=== PATIENT | female | born 1965 | race Caucasian/White ===

== ENCOUNTER 2024-05-06 05:46 | Inpatient (IN) | payer BC, SELFPAY ==
[2024-05-06] VITALS (8 sets, daily range): BP systolic 144–179; BP diastolic 75–90; BMI 38.6
[2024-05-06 03:25] LABS: % Basophils 0.5 % (0-2); % Eosinophils 0.6 % (0-6); % Immature Granulocytes 0.2 % (0-0.5); % Lymphocytes 23.3 % (20.5-51.1); % Monocytes 6.8 % (1.7-9.3); % Neutrophils 68.6 % (42.2-75.2); Absolute Eosinophils 0.1 10^3/uL (0-0.7); Absolute Monocytes 0.6 10^3/uL (0.1-0.6); Absolute Neutrophils 5.8 10^3/uL (1.4-6.5); Hematocrit 42.1 % (37.0-47.0); Mean Corp Hgb Conc. 33.3 g/dL (33.0-37.0); Mean Corpuscular Volume 84.2 fL (81.0-99.0); Mean Platelet Volume 9.8 fL (7.4-10.4); Nucleated Red Blood Cells % 0 %; Platelet Count 299 10^3/uL (130-400); Red Cell Dist. Width 13.1 % (11.5-14.5); White Blood Cell Count 8.4 10^3/uL (4.8-10.8)
[2024-05-06] MEDS: ZOFRAN 4 MG IV ×5 (03:26→21:29)
[2024-05-06] MEDS: PROTONIX IV 40 MG IV ×3 (03:26→21:28)
--- NOTE | 2024-05-06 03:28 | ED.GENMED ---
History of Present Illness
General
Chief Complaint: Abdominal Symptoms
Source: patient and previous hospital records (Hospitalization January 2021 for gallstone pancreatitis.)
Exam Limitations: none
Time Seen by Provider: 05/06/24 03:15
Nursing documentation reviewed up to this point in time: agreed with
History of Present Illness
History of Present Illness:
This is a 58-year-old woman with history of hypertension, osteoarthritis who underwent left total knee replacement January 2024. She admits to significant daily NSAID use due to ongoing left knee pain. She complains of several day history of
intermittent indigestion which has been temporized with omeprazole. Indigestion worsened and has been more persistent since 3 PM yesterday, severe tonight and much worse after drinking 2 glasses of wine and thus far unrelieved with multiple doses
of antacids, Pepcid, omeprazole. Epigastric, lower substernal chest pain is worse with deep breath but she denies shortness of breath, no cough, no diaphoresis. She admits to mild nausea but has had no vomiting.
Epigastric abdominal pain radiates to her back.
She does have history of gallstone pancreatitis January 2021 and underwent cholecystectomy at that time. Current pain feels similar.
Her only daily prescribed medication is lisinopril. She does admit to moderate daily NSAID use as well as sporadic [id number] Prilosec and Pepcid use.
Past History
Past History
ED Past Medical History: GERD, HTN and Other (Gallstone pancreatitis January 2021)
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
Social History
Tobacco: Former smoker
Alcohol: Occasional
Drug: None
Personal:
Living: with family
Employment: Employed
Family History
Family History: Other (Noncontributory)
Phy Exam
Physical Exam
Physical Exam:
GENERAL: 58-year-old obese woman appears her stated age, awake and alert, appears in significant distress related to pain. Intermittently wincing and crying out in pain, guarding her epigastrium. is accompanying.
EYE: anicteric
NECK: Supple, nontender, no meningismus, no significant adenopathy.
ENT: oral mucosa is moist, lips are mildly dry. No rhinorrhea.
CARDIAC: Regular rate and rhythm. no murmur. No rub.
LUNGS: Clear breath sounds bilaterally, no acute respiratory distress, no wheezes/rales/rhonchi
ABDOMEN: Rotund, soft, nondistended, moderate tenderness epigastric region with local guarding, no rebound nor rigidity, no cvat. normoactive BS.
NEUROLOGICAL: Alert and oriented x3, no focal neuro deficits.
SKIN: Warm and dry, normal color, skin intact. No rash.
MUSCULOSKELETAL: No C/C/E. peripheral pulses are full and equal b/l. No palpable tenderness.
PSYCH: Moderately anxious related to pain. Cooperative.
Course
Orders/Labs/Results
Orders:
Orders
05/06/24 03:05
Electrocardiogram (*1) Urgent
Reason for Study: Chest Pain
Cardiac Monitoring- Treatment ONCE
EKG- Treatment ONCE
IV Insert/Care/Rem.- Treatment PRN
O2 Therapy [RESP] Urgent
Titrate/Wean O2 to maintain O2 sat greater than (%): 90
Special Instructions: Maintain sats >/=90%
Pulse Ox/spot Check [RESP] Urgent
Quantity: 1
Special Instructions: ON ROOM AIR
05/06/24 03:15
Complete Blood Count/With Diff Urgent
Comprehensive Metabolic Panel Urgent
Lipase Urgent
Troponin I Urgent
05/06/24 03:17
Pantoprazole [Protonix IV] 40 mg .ROUTE .STK-MED ONE
Phenobarb/Hyoscy/Atropine/Scop [] 10 ml .ROUTE .STK-MED ONE
05/06/24 03:18
Mag Hydrox/Al Hydrox/Simeth [Maalox] 30 ml .ROUTE .STK-MED ONE
Viscous Lidocaine 2% [Xylocaine Viscous Cup] 15 ml .ROUTE .STK-MED ONE
05/06/24 03:19
Mag Hydrox/Al Hydrox/Simeth [Maalox] 30 ml Phenobarb/Hyoscy/Atropine/Scop [] 10 ml Viscous Lidocaine 2% [Xylocaine Viscous Cup] 10 ml PO NOW
05/06/24 03:22
Pantoprazole [Protonix IV] 40 mg IV NOW STA
05/06/24 03:23
Ondansetron Injectable [Zofran] 4 mg IV NOW STA
05/06/24 03:27
0.9% Sodium Chloride 1000 ml [Nss] 1,000 ml IV BOLUS
HYDROmorphone [Dilaudid] 1 mg IV NOW STA
05/06/24 04:00
CT Abd/pelvis W Iv Cont Urgent
Comment:
Reason For Exam: severe epigastric pain, elev LFT's, lipase
05/06/24 05:11
Ondansetron Injectable [Zofran] 4 mg IV NOW STA
05/06/24 05:18
HYDROmorphone [Dilaudid] 0.5 mg IV NOW STA
Abnormal Lab Results
05/06/24
03:15
Creatinine 0.5 L mg/dL
(0.6-1.0)
Glucose 148 H mg/dl
(70-99)
AST 626 H* U/L
(14-36)
ALT 549 H* U/L
(0-35)
Lipase > 4000 H* U/L
(23-300)
05/06/24 03:15
05/06/24 03:15
Vital Signs
Initial and Last Documented VS:
Initial Vital Signs
Temp Pulse Resp BP Pulse Ox
97.6 F 108 22 179/88 100
05/06/24 03:06 05/06/24 03:06 05/06/24 03:06 05/06/24 03:06 05/06/24 03:06
Last Documented Vital Signs
Temp Pulse Resp BP Pulse Ox
97.6 F 98 14 159/87 99
05/06/24 03:06 05/06/24 05:15 05/06/24 04:00 05/06/24 05:08 05/06/24 05:15
MDM/Problems Addressed
Differential Diagnosis Includes:
Concern for severe GERD/esophagitis, pancreatitis, common bile duct stone, gastric ulcer, perforated gastric ulcer, ACS, dissection.
Moderately hypertensive, mildly tachycardic, afebrile. Pulse ox is normal.
Will medicate for pain and nausea, initiate IV fluids.
Labs are pending.
EKG shows no evidence of ACS.
Will plan on imaging depending on results.
Chronic conditions affecting care: HTN and Other (History of GERD, prior history of gallstone pancreatitis)
*Radiology
Radiology exam reviewed: radiology read reviewed
*Pulse Oximetry
Patient hypoxic: no
*EKG
Interpreted by ED Provider?: Yes
Comparison EKG: changes noted (Overall similar to previous January 2021 save her heart rate has increased from 82 to now 107)
Rate: tachycardiac
Rhythm: sinus
[place]: normal axis
Interval: normal interval
QRS Pattern: normal QRS
Ischemia: non-specific ST changes
*Director Emergency Interpretation
Rate: tachycardiac
Interpretation: abnormal
Rhythm: sinus
*Critical Care Note
Total Time (30-74mins, 75-104mins- exclusive of procedures): Not Applicable
Update Note
Update Note:
04:50
Labs significant for markedly elevated LFTs as well as elevated lipase greater than 4000. T. bili and alkaline phosphatase normal. Normal CBC.
I suspect acute pancreatitis. With normal bilirubin and alkaline phosphatase, common bile duct stone is less likely but still a consideration.
Other consideration is alcohol related pancreatitis.
Patient does admit to drinking 2 glasses of wine last night, other than this denies daily nor even frequent alcohol consumption.
CT abdomen pelvis pending.
Will admit to hospitalist service.
ED Attending Note
-
Portions of this chart may have been created with voice recognition software.� Occasional wrong word or��sound alike� substitutions may have occurred due to the inherent limitations of voice recognition software.
Discharge Plan
Departure
Patient Disposition: Admit
Date of Disposition: 05/06/24
Time of Disposition: 04:49
Admit to: Med/Surg
Admit to doctor: Yang
Presentation/result/management discussed w/ accepting MD/DO: Hospitalist
Condition: Serious
Discharge Problem:
Acute pancreatitis
Prescriptions:
No Action
ibuprofen 200 MG tablet
200 mg PO Q4HPRN PRN (Reason: mild pain)
fluticasone propionate 1 SPRAY spray,suspension
1 spray intranasal DAILY
ondansetron 4 MG tablet,disintegrating
4 mg PO Q8HPRN PRN (Reason: nausea)
lisinopril 10 MG tablet
10 mg PO DAILY
Referrals:
Connor Faust MD [Family Provider] -
Interventions
Interventions:
*Risk Screen - Suicide Last Done: 05/06/24 03:06
*General Assessment Last Done: 05/06/24 03:06
*Neglect/Abuse Screening Last Done: 05/06/24 03:06
ED- Fall Risk Assessment Last Done: 05/06/24 03:43
JH-Xavcmx-Vcocsxamvo Assessment Last Done: 05/06/24 03:43
Discharge Date and Time
Print Language: CAY[place] ISLANDER
[2024-05-06] MEDS: DILAUDID 1 MG IV (03:32)
[2024-05-06] MEDS: NSS 1000 IV (03:32)
[2024-05-06 03:50] LABS: ALT (SGPT) 549 U/L (0-35); AST (SGOT) 626 U/L (14-36); Albumin 4.5 g/dl (3.5-5.0); Alkaline Phosphatase 121 U/L (38-126); Blood Urea Nitrogen 13 mg/dl (7-17); Calcium 9.7 mg/dl (8.4-10.2); Carbon Dioxide 26 mmol/L (22-30); Chloride 103 mmol/L (98-107); Estimated Creatinine Clearance > 125 ml/min; Glucose 148 mg/dl (70-99); Lipase > 4000 U/L (23-300); Potassium 4.3 mmol/L (3.5-5.1); Sodium 140 mmol/L (135-145); Total Protein 7.4 g/dl (6.3-8.2); eGFR > 60.00
[2024-05-06 03:52] LABS: Troponin I < 0.012 ng/ml
[2024-05-06] MEDS: DILAUDID 0.5 MG IV (05:24)
--- NOTE | 2024-05-06 05:39 | HPS.HSE ---
Family Physician
-
Family Physician: Connor Faust
Chief Complaint
-
Abd Pain
History of Present Illness
Patient is a 58y F with PMH significant for hypertension and obesity who presents to ED complaining of abdominal pain. Patient states that she started with epigastric pain around 3 PM this afternoon. Her symptoms progressed throughout the
evening. She notes pain in the epigastric area which radiates straight through to the back. Positive nausea without emesis. No fevers / chills. She had three, small, formed BMs this evening - which is unusual for her. Patient notes that she did
eat dinner and she had two glasses of wine this evening and her pain continued to get worse. She does not drink alcohol on a regular basis. Typically has 1-2 drinks every several weeks.
Patient states that she has been having increased symptoms of 'heartburn' for the past week or so. She has been taking Prilosec, Pepcid and TUMS at home without improvement in these symptoms.
Patient also notes that she has been taking ibuprofen very regularly since October 2023. She reports taking 6 tabs daily on a consistent basis (2 tabs TID).
She denies any black / bloody stools.
No other current complaints or concerns.
Patient had one episode of similar symptoms several years ago (2020).
She was hospitalized at that time, diagnosed with gallstone pancreatitis and underwent cholecystectomy.
Medical History
Past Medical History
Past Medical History: Reports Other
Additional Past Medical History:
Hypertension
Obesity
Past Surgical History: Reports Other
Additional Past Surgical History:
Cholecystectomy
Bilateral TKA
x 2
Social History
Tobacco: Non-smoker
Alcohol: Occasional
Drug: None
Family History
Family History: Not pertinent
Allergies / Home Medications
Allergies reflects when Allergies were last updated in [facility].
Home Medications with original date entered in [facility]
Allergy/Medication List:
Allergies
Allergy/AdvReac Type Severity Reaction Status Date / Time
levofloxacin [From Levaquin] Allergy family Verified 01/31/21 04:57
reaction-will
not take
Sulfa (Sulfonamide Allergy Rash Verified 01/31/21 04:57
Antibiotics)
seasonal Allergy nasal Uncoded 01/31/21 04:57
congestion
Home Medications
lisinopril 10 mg tablet 10 mg PO DAILY Blood pressure 02/01/21
Review of Systems
-
History Source: Patient
A 12 point ROS was completed and negative except as noted: Yes
Constitutional: Reports Fatigue; Denies Fever or Chills
Respiratory: Denies Cough or Trouble Breathing
Cardiac: Denies Chest Pain or Palpitations
Abdomen/GI: Reports Abdominal Pain and Nausea; Denies Vomiting, Diarrhea, Constipated, Bloody Stools or Black Stools
: Denies Dysuria or Frequency
Neurological: Denies Dizzy or Headache
Psych: Denies Depression or Anxiety
Physical Exam
Vital Signs
Vital Signs
Temp Pulse Resp BP Pulse Ox
97.6 F 98 14 159/87 99
05/06/24 03:06 05/06/24 05:15 05/06/24 04:00 05/06/24 05:08 05/06/24 05:15
Physical Exam
General: Other (58y F in mild distress due to abdominal pain.)
HEENT: Moist mucous membranes and PERRLA
Respiratory: Clear; No Wheezes, Rales or Rhonchi
Cardiac: S1/S2 and Tachycardia; No Murmur
GI: Other (Obese, pos tenderness and voluntary guarding at the epigastrum. No RUQ tenderness / rebound. Pos BS.)
Musculoskeletal: No Clubbing, No Cyanosis and No Edema
Neuro: AO x 3
Laboratory Results
-
05/06/24 03:15
05/06/24 03:15
Laboratory Results
Total Bilirubin 1.0 mg/dl (0.2-1.3) 05/06/24 03:15
AST 626 U/L (14-36) H* 05/06/24 03:15
ALT 549 U/L (0-35) H* 05/06/24 03:15
Alkaline Phosphatase 121 U/L (38-126) 05/06/24 03:15
Troponin I < 0.012 ng/ml 05/06/24 03:15
Lipase > 4000 U/L (23-300) H* 05/06/24 03:15
Impression/Plan
-
A/P: Patient is a 58y F with PMH significant for hypertension and obesity who presents to ED complaining of abdominal pain.
Acute Pancreatitis
- Admit for further evaluation and treatment.
- NPO, IVFs, pain control, etc.
- CT done in the ED this evening shows mild peripancreatic stranding, but no other acute abnormality.
- Some alcohol tonight - but does not drink on any regular basis.
- ? PUD / duodenal ulcer leading to symptoms given several months of regular NSAID use, recent heartburn symptoms, etc.
- GI evaluation for additional recommendations.
- Follow for clinical improvement.
Transaminitis
- Abnormal LFTs in hepatocellular pattern. Normal bili / alk phos.
- ? secondary to tonight's alcohol intake?
- Check serologis. Follow for changes.
- GI eval as noted above.
GERD
- Recent increase in symptoms and regular NSAID use as noted above.
- IV PPI for now.
- Would avoid NSAIDs in the future.
- GI evaluation +/- endoscopic examination.
Benign Hypertension
- BP somewhat elevated due to acute pain.
- Hold lisinopril acutely.
- IV hydralazine as needed for very high BP.
- Efforts at pain control.
Obesity due to excess calories
- Affects all aspects of care.
- Encourage healthy diet and increased exercise with goal of weight loss.
DVT Prophylaxis: SCDs
Code Status: Full
[2024-05-06] MEDS: NSS (PRESERVATIVE FREE) 10 ML IV ×2 (07:37→21:28)
[2024-05-06] MEDS: LR 1000 IV ×3 (07:38→21:29)
--- NOTE | 2024-05-06 08:47 | TRANSFER ---
Patient transferred from ED to [facility] Pt walked from stretcher to bed, AAOx3, VSS, admissin and assessment completed by this RN. Call raphael within reach.
[2024-05-06] MEDS: TORADOL 15 MG IV ×3 (09:33→21:29)
[2024-05-06] MEDS: PHENERGAN 50.25 MG IV (09:54)
--- NOTE | 2024-05-06 12:21 | CON.GI ---
Addendum entered and electronically signed by Rafael Smith DO 05/06/24 15:08:
I saw and examined the patient.
The COAL CRUSHER OPERATOR's note was reviewed and I agree with the note.
Comment: Ms. Gar is a 58 y.o female with past medical history of HTN and gallstone pancreatitis (s/p CCY 2020) who presented with acute epigastric pain. Meets criteria for acute pancreatitis given her symptomatology and elevated lipase > 4000s.
CT imaging with faint stranding along the pancreatic head which may represent early pancreatitis along with with mild CBD dilatation up to 1.0 cm without any overt filling defects. This is possibly from reservoir effect from prior CCY, however given
her elevated LFTs with AST 626, ALT 549, ALP 121, and T Bili 1.0 biliary source should be rule out. Her prior recent alcohol use (three drinks over weekend) would not explain her current elevated LFTs. Otherwise, no other new medications. Currently,
her pain is improving but would benefit from a MRI/MRCP this admission to definitively r/o retained stone and/or sludge as possible recurrent cause of her pancreatitis.
Recommendations:
- Keep NPO pending MRCP
- Trend LFTs with T Bili q daily
- Agree with obtaining triglycerides and IgG4 to exclude other etiologies
- Ordered MRI/MRCP WWO contrast for further evaluation
- Ensure daily bowel regimen for ileus prevention / OIC
- Pain control and IV-antiemetics PRN
- Cessation of EtOH and NSAIDs
- Rest of care as outlined below
GI will continue to follow.
Original Note:
Consultation
-
Date/Time Consultation Requested: 05/06/24 0705
Date/Time Consultation Performed: 05/06/24 1210
Requesting Provider: Dr. Soria
Performing Provider: Dr. Smith/TORIBIO Alatorre
Reason for Consultation: pancreatitis
Medical History
Chief Complaint / HPI
Chief Complaint: epigastric pain
History of Present Illness:
58-year-old female with past medical history of hypertension, gallstones pancreatitis status postcholecystectomy 2020, knee osteoarthritis who presents to the emergency room with acute onset of epigastric pain. Asked to evaluate for pancreatitis.
The patient states that she has had 1 month history of intermittent loose stools. She states that this occurred after her family had norovirus back in March. She states that she has had some issues with fattier foods recently and was advised by
her PCP to go on a lactose-free diet. She states that on Monday evening she went out to dinner and had shrimp and steak. She also had a glass of wine. She states she felt okay. On Monday she had 2 glasses of wine as well as and tinnitus. She
developed acute onset of epigastric discomfort. She states that this was sharp as well as dull pressure. She took 3 Prilosec as well as a couple Pepcid and Tums without any relief. She went to try to go lie down however had worsening symptoms and
presented to the emergency room. She did have associated nausea however did not vomit. She states the pain was constant with a gnawing feeling and feels similar to when she had her gallstone pancreatitis in the past. The patient denies any
fevers, chills, vomiting, melena, hematochezia, dysphagia or odynophagia. No early satiety or unintentional weight loss. No acholic stools or bilirubinuria. She has been using ibuprofen for left knee replacement in January. No changes in
medication. She takes lisinopril. She has had no increase in dose and has been on this for many years. She states that she had 3 glasses of wine over the weekend but other than that it has been at least a month since she had any other alcohol.
She has never had an endoscopy or colonoscopy before. She denies any family history of gastrointestinal malignancy, IBD or pancreatic issues. She does not smoke.
Past Medical History
Past Medical History: HTN and Other (Gallstone pancreatitis (2020), osteoarthritis)
Past Surgical History: Other (Bilateral total knee arthroscopy, C-sections x 2, cholecystectomy)
Social History
Tobacco: Non-Smoker
Alcohol: Occasional
Drug: None
Personal:
Living: With Family
Family History
Family History: Other (No family history of gastrointestinal malignancy, IBD, pancreatitis or family history of pancreatic disease)
Allergies / Home Medications
Allergy/AdvReac Type Severity Reaction Status Date / Time
levofloxacin [From Levaquin] Allergy family Verified 01/31/21 04:57
reaction-will
not take
Sulfa (Sulfonamide Allergy Rash Verified 01/31/21 04:57
Antibiotics)
seasonal Allergy nasal Uncoded 01/31/21 04:57
congestion
�Medication �Instructions �Recorded
lisinopril 10 mg tablet 10 mg PO DAILY Blood pressure 02/01/21
ibuprofen 200 mg tablet (Advil) 400 mg PO DAILYPRN PRN mild pain 05/06/24
Review of Systems
-
All other systems: A 12 pt ROS was Negative except as stated above in HPI
Vital Signs
Temp Pulse Resp BP Pulse Ox
99.1 F 73 20 177/89 95
05/06/24 11:10 05/06/24 11:10 05/06/24 11:10 05/06/24 11:10 05/06/24 11:10
Physical Exam
Exam
General: No Apparent Distress
HEENT: Anicteric
Respiratory: Clear
Cardiac: Regular Rhythm
GI: Soft, Non Distended, Normal Bowel Sounds and Tender (Epigastric/periumbilical tenderness)
Musculoskeletal: No Edema
Neuro: AO x 3
Psych: Calm
Results
WBC 8.4 10^3/uL (4.8-10.8) 05/06/24 03:15
Hgb 14.0 g/dL (12.0-16.0) 05/06/24 03:15
Hct 42.1 % (37.0-47.0) 05/06/24 03:15
MCV 84.2 fL (81.0-99.0) 05/06/24 03:15
Plt Count 299 10^3/uL (130-400) 05/06/24 03:15
Absolute Neuts (auto) 5.8 10^3/uL (1.4-6.5) 05/06/24 03:15
Sodium 140 mmol/L (135-145) 05/06/24 03:15
Potassium 4.3 mmol/L (3.5-5.1) 05/06/24 03:15
Chloride 103 mmol/L (98-107) 05/06/24 03:15
Carbon Dioxide 26 mmol/L (22-30) 05/06/24 03:15
BUN 13 mg/dl (7-17) 05/06/24 03:15
Creatinine 0.5 mg/dL (0.6-1.0) L 05/06/24 03:15
Calcium 9.7 mg/dl (8.4-10.2) 05/06/24 03:15
Total Bilirubin 1.0 mg/dl (0.2-1.3) 05/06/24 03:15
AST 626 U/L (14-36) H* 05/06/24 03:15
ALT 549 U/L (0-35) H* 05/06/24 03:15
Alkaline Phosphatase 121 U/L (38-126) 05/06/24 03:15
Lipase > 4000 U/L (23-300) H* 05/06/24 03:15
Diagnostic Image Results:
CT abdomen and pelvis with IV contrast:
There is questionable faint stranding along the pancreatic head which may represent early pancreatitis. Recommend correlation with lipase.
Hepatic steatosis.
Prior cholecystectomy. There is mild prominence of the common bile duct which measures 1.0 cm, likely reservoir effect in the setting of prior cholecystectomy.
Multiple uterine fibroids with the largest measuring 3.3 cm along the uterine fundus.
Prior GI Procedures:
EGD: Never
Colonoscopy: Never
Assessment / Plan
-
58year-old female with past medical history of hypertension, gallstones pancreatitis status postcholecystectomy 2020, knee osteoarthritis who presents to the emergency room with acute onset of epigastric pain. Asked to evaluate for pancreatitis.
This occurred after having 2 glasses of wine and empanadas. Patient states it felt similar to when she had her prior episode of gallstone pancreatitis in [address] imaging showing prior cholecystectomy with mild prominence
of the CBD which measures 1.0 cm likely reservoir effect in the setting of prior cholecystectomy. Questionable faint stranding along the pancreatic head which may represent early pancreatitis. Hepatic steatosis. Patient still with significant
epigastric/periumbilical tenderness. WBC 8.4, hemoglobin 14.0, hematocrit 42.1, platelets 299, MCV 84.2, MCH 28.0, Sodium 140, potassium 4.3, chloride 103, CO2 26, BUN 13, creatinine 0.5, glucose 148, total bilirubin 1.0, AST 626, ALT 549, alk phos
121, lipase greater than 4000.
Impression:
Pancreatitis
-- Second episode. First episode was presumed to be secondary to gallstone pancreatitis. (2020)
Plan:
-NPO, ice chips allowed
-Incentive spirometer
-Continue IV fluids
-Check triglycerides, IgG4 subclasses, fractionate bilirubin
-Analgesia and antiemetics as needed
-CBC, BMP, LFTs, lipase in a.m.
-May want to consider MRI/ MRCP for further evaluation of bile duct and pancreas.
-Further recommendations to be forthcoming
-Recommend outpatient colonoscopy for screening.
-
-
Thank you for consultation and allowing me to participate in the patient's care. Please call the content designer GI physician during the after hours with any questions or concerns.
--- NOTE | 2024-05-06 12:36 | W.PN.UPDATE ---
Update Note
Progress Note Update
Seen and examined independent of overnight physician.
Continues to states of epigastric and severe abdominal pain. Also states of nausea.
Had glasses of wine prior to coming in. Denies drinking on a daily basis. History of cholecystectomy. Denies trauma.
General: Other (58y F in mild distress due to abdominal pain.), morbidly obese
HEENT: Moist mucous membranes and PERRLA
Respiratory: Clear; No Wheezes, Rales or Rhonchi
Cardiac: S1/S2 and Tachycardia; No Murmur
GI: Other (Obese, pos tenderness and voluntary guarding at the epigastrum. No RUQ tenderness / rebound. Pos BS.)
Musculoskeletal: No Clubbing, No Cyanosis and No Edema
Neuro: AO x 3
A/P: Patient is a 58y F with PMH significant for hypertension and obesity who presents to ED complaining of abdominal pain.
Acute Pancreatitis
- NPO, IVFs, pain control, etc.
- CT done in the ED this evening shows mild peripancreatic stranding, but no other acute abnormality.
- Some alcohol tonight - but does not drink on any regular basis.
- ? PUD / duodenal ulcer leading to symptoms given several months of regular NSAID use, recent heartburn symptoms, etc.
- GI evaluation for additional recommendations.
- Follow for clinical improvement.
- Check lipid panel, A1c and triglycerides. Calcium within normal limits. No trauma. Autoimmune workup. ? Lisinopril causing pancreatitis.
Transaminitis
- Abnormal LFTs in hepatocellular pattern. Normal bili / alk phos.
- ? secondary to tonight's alcohol intake?
- Check serologis. Follow for changes.
- GI eval as noted above. Hepatitis panel pending
GERD
- Recent increase in symptoms and regular NSAID use as noted above.
- IV PPI for now.
- Would avoid NSAIDs in the future.
- GI evaluation +/- endoscopic examination.
Benign Hypertension
- BP somewhat elevated due to acute pain.
- Hold lisinopril acutely.
- IV hydralazine as needed for very high BP.
- Efforts at pain control.
Morbid obesity due to excess calories
- Affects all aspects of care.
- Encourage healthy diet and increased exercise with goal of weight loss.
DVT Prophylaxis: SCDs/Lovenox
Code Status: Full
[2024-05-06 14:01] LABS: Direct Bilirubin 0.6 mg/dl (0.0-0.4); Triglycerides 125 mg/dl (10-149)
--- NOTE | 2024-05-06 17:04 | CM ---
Alert awake oriented patient who lives with her oLs who lives in a 2 story home with 2 steps to enter and 14 to bed bathroom. She is independent in driving and in all activities of daily living.Offered VN she declined.
No adaptive devices
Never had VN/SNF
Pharmacy [facility]
PCP Dr Connor Faust
PLAN Home no needs
[2024-05-06] MEDS: TRANDATE 10 MG IV (17:25)
[2024-05-06 18:57] LABS: Hepatitis B Surface Antigen Negative (Negative)
[2024-05-06 19:14] LABS: Hepatitis B Surface Antibody Negative; Hepatitis C Antibody Negative (Negative)
[2024-05-06 20:41] LABS: Hepatitis A IgM Antibody Negative (Negative)
[2024-05-07] VITALS (7 sets, daily range): BP systolic 136–167; BP diastolic 68–91
[2024-05-07] MEDS: LR 1000 IV ×3 (05:54→20:46)
[2024-05-07 07:12] LABS: Hematocrit 36.8 % (37.0-47.0); Mean Corp Hgb Conc. 32.6 g/dL (33.0-37.0); Mean Corpuscular Hgb 27.9 pg (27.0-31.0); Mean Corpuscular Volume 85.6 fL (81.0-99.0); Mean Platelet Volume 9.8 fL (7.4-10.4); Platelet Count 233 10^3/uL (130-400); Red Cell Dist. Width 13.4 % (11.5-14.5); White Blood Cell Count 7.3 10^3/uL (4.8-10.8)
[2024-05-07 08:00] LABS: ALT (SGPT) 732 U/L (0-35); AST (SGOT) 251 U/L (14-36); Albumin 3.6 g/dl (3.5-5.0); Alkaline Phosphatase 164 U/L (38-126); Blood Urea Nitrogen 10 mg/dl (7-17); Calcium 8.8 mg/dl (8.4-10.2); Carbon Dioxide 28 mmol/L (22-30); Chloride 105 mmol/L (98-107); Direct Bilirubin 0.3 mg/dl (0.0-0.4); Estimated Creatinine Clearance > 125 ml/min; Glucose 94 mg/dl (70-99); HDL Cholesterol 82 mg/dl; LDL Cholesterol, Calculated 89 mg/dl; Sodium 142 mmol/L (135-145); Total Bilirubin 0.7 mg/dl (0.2-1.3); Total Cholesterol 188 mg/dl (50-199); Total Protein 6.1 g/dl (6.3-8.2); Triglyceride 86 mg/dl (10-149); Very Low Density Lipoprotein 17 mg/dl (0-30); eGFR > 60.00
[2024-05-07] MEDS: NSS (PRESERVATIVE FREE) 10 ML IV ×2 (08:01→20:36)
[2024-05-07] MEDS: PROTONIX IV 40 MG IV ×2 (08:03→20:36)
[2024-05-07] MEDS: TORADOL 15 MG IV ×2 (08:18→17:48)
[2024-05-07] MEDS: ZOFRAN 4 MG IV ×2 (08:19→17:48)
[2024-05-07 08:37] LABS: Potassium 3.7 mmol/L (3.5-5.1)
--- NOTE | 2024-05-07 08:48 | W.PN.GI.CBS2 ---
Today's Communication / Plan
-
Await MRI/MRCP WWO contrast given elevated LFTs and previous biliary ductal dilatation seen on prior imaging. See rest of care as outlined below.
Assessment / Plan
-
58year-old female with past medical history of hypertension, gallstones pancreatitis status postcholecystectomy 2020, knee osteoarthritis who presents to the emergency room with acute onset of epigastric pain. Asked to evaluate for pancreatitis.
This occurred after having 2 glasses of wine and empanadas. Patient states it felt similar to when she had her prior episode of gallstone pancreatitis in [address] imaging showing prior cholecystectomy with mild prominence
of the CBD which measures 1.0 cm likely reservoir effect in the setting of prior cholecystectomy. Questionable faint stranding along the pancreatic head which may represent early pancreatitis. Hepatic steatosis. Patient still with significant
epigastric/periumbilical tenderness. WBC 8.4, hemoglobin 14.0, hematocrit 42.1, platelets 299, MCV 84.2, MCH 28.0, Sodium 140, potassium 4.3, chloride 103, CO2 26, BUN 13, creatinine 0.5, glucose 148, total bilirubin 1.0, AST 626, ALT 549, alk phos
121, lipase greater than 4000.
#Acute, Recurrent Pancreatitis
-- Second episode. First episode was presumed to be secondary to gallstone pancreatitis. (2020)
#Elevated LFTs
#Biliary Ductal Dilation
Recommendations:
- NPO pending MRI/MRCP
- Continue IVF 24-48 hrs for volume expansion
- Trend serial LFTs q daily, fractionated T Bili and D Bili q daily (now normal)
- Acute hepatitis panel (-)
- Await MRI/MRCP WWO contrast later today to r/o retained stone and/or sludge given previous dilatation and elevated transaminases
- Hypertriglyceridemia r/o (nml TGs 86), pending IgG4 for AI w/u
- Start Miralax and senna as a bowel regimen for ileus prevention / prevention of opioid-induced constipation
- Pain control and IV anti-emetics PRN
- Rest of care per primary team
Discussed with primary internal medicine team. GI will continue to follow while inpatient.
Subjective
Subjective
Date of Service: May 07, 2024
- No acute events overnight
Feeling well and admits complete resolution of previous abdominal pain/discomfort. No nausea or vomiting. NPO pending MRI/MRCP. No other fevers or chills.
Objective
Data Reviewed
Laboratory Data:
Laboratory Results
05/07/24 06:37
05/07/24 06:37
Laboratory Results
Total Bilirubin 0.7 mg/dl (0.2-1.3) 05/07/24 06:37
AST 251 U/L (14-36) H 05/07/24 06:37
ALT 732 U/L (0-35) H* 05/07/24 06:37
Alkaline Phosphatase 164 U/L (38-126) H 05/07/24 06:37
Lipase > 4000 U/L (23-300) H* 05/06/24 03:15
Vital Signs and I&O:
Vital Signs
Temp Pulse Resp BP Pulse Ox
97.8 F 74 18 155/84 97
05/07/24 07:13 05/07/24 07:13 05/07/24 07:13 05/07/24 07:13 05/07/24 07:13
Physical Exam
Physical Exam
HEENT: Anicteric and Moist mucous membranes
Cardiology: Normal Sinus Rhythm
Pulmonary: Other (Normal WOB on room air)
GI: Soft, Non Distended and Non Tender
Extremities: No Edema
Neuro: Non Focal
[2024-05-07 09:36] LABS: Lipase > 4000 U/L (23-300)
[2024-05-07] MEDS: ATIVAN 0.5 MG IV (09:37)
[2024-05-07] MEDS: NSS (PRESERVATIVE FREE) 0.25 ML IV (09:38)
--- NOTE | 2024-05-07 10:46 | CM ---
Reviewed the chart notes. Per notes, await MRI/MRCP WWO contrast for elevated LFTs. CM continues to be available to patient/family and is monitoring medical plan for needs at discharge.
Plan: Discharge to home when medically stable. No needs anticipated.
--- NOTE | 2024-05-07 11:36 | W.PN.HOSP.TC ---
Today's Communication/Plan
-
MRI pending
Reduce IVF rate
IV bp meds
PPI
GI recs
Assessment / Plan
Assessment / Plan
General: morbidly obese, less distressful,
HEENT: Moist mucous membranes and PERRLA
Respiratory: Clear; No Wheezes, Rales or Rhonchi
Cardiac: S1/S2 and Tachycardia; No Murmur
GI: No RUQ tenderness / rebound. Pos BS. Obese,
Musculoskeletal: No Clubbing, No Cyanosis and No Edema
Neuro: AO x 3
A/P: Patient is a 58y F with PMH significant for hypertension and obesity who presents to ED complaining of abdominal pain.
Acute Pancreatitis
- NPO, IVFs, pain control, etc.
- CT done in the ED this evening shows mild peripancreatic stranding, but no other acute abnormality.
- Some alcohol tonight - but does not drink on any regular basis.
- ? PUD / duodenal ulcer leading to symptoms given several months of regular NSAID use, recent heartburn symptoms, etc.
- GI evaluation for additional recommendations.
- Follow for clinical improvement. MRI abdomen completed. results pending
- TG wnl. Calcium within normal limits. No trauma. Autoimmune workup. ?Lisinopril causing pancreatitis.
Transaminitis
- Abnormal LFTs in hepatocellular pattern. Normal bili / alk phos.
- hep serologies neg
- Follow for changes.
- GI eval as noted above. H
GERD
- Recent increase in symptoms and regular NSAID use as noted above.
- IV PPI for now.
- Would avoid NSAIDs in the future.
- GI evaluation +/- endoscopic examination.
Benign Hypertension
- BP somewhat elevated due to acute pain.
- Switch lisinopril to CCB. pt agreed.
- IV meds as needed f
- Efforts at pain control.
Morbid obesity due to excess calories
- Affects all aspects of care.
- Encourage healthy diet and increased exercise with goal of weight loss.
DVT Prophylaxis: SCDs/Lovenox
Code Status: Full
Anticipated Discharge: > 48 hours
Subjective/Interval History
-
Date of Service: May 07, 2024
states of improvement in abd pain
states she was taking increasing amount of tylenol and advil at home
Objective Data
-
Labs:
Laboratory Results
05/07/24
06:37
WBC 7.3
Hgb 12.0
Hct 36.8 L
Plt Count 233 D
Sodium 142
Potassium 3.7
Chloride 105
Carbon Dioxide 28
BUN 10
Creatinine 0.5 L
Glucose 94
Calcium 8.8
Total Bilirubin 0.7
AST 251 H
ALT 732 H*
Alkaline Phosphatase 164 H
Vital Signs:
Vital Signs
Temp Pulse Resp BP Pulse Ox
97.8 F 74 18 155/84 97
05/07/24 07:13 05/07/24 07:13 05/07/24 07:13 05/07/24 07:13 05/07/24 07:13
[2024-05-07] MEDS: PROCARDIA XL (EXTENDED RELEASE) 30 MG PO (12:53)
[2024-05-07 14:33] LABS: Glycohemoglobin (HgbA1c) 5.7 % (4.0-5.6)
[2024-05-07] MEDS: TYLENOL 650 MG PO ×2 (15:24→21:28)
[2024-05-08 02:25] VITALS: BP 129/62
[2024-05-08] MEDS: TYLENOL 650 MG PO ×2 (04:00→12:06)
[2024-05-08] MEDS: LR 1000 IV (06:23)
[2024-05-08 07:30] VITALS: BP 137/74
[2024-05-08] MEDS: NSS (PRESERVATIVE FREE) 10 ML IV (07:32)
[2024-05-08] MEDS: PROTONIX IV 40 MG IV (07:32)
[2024-05-08] MEDS: PROCARDIA XL (EXTENDED RELEASE) PO (07:33)
[2024-05-08 09:51] LABS: ALT (SGPT) 469 U/L (0-35); AST (SGOT) 73 U/L (14-36); Albumin 3.6 g/dl (3.5-5.0); Alkaline Phosphatase 146 U/L (38-126); Blood Urea Nitrogen 6 mg/dl (7-17); Calcium 8.9 mg/dl (8.4-10.2); Carbon Dioxide 28 mmol/L (22-30); Chloride 103 mmol/L (98-107); Estimated Creatinine Clearance > 125 ml/min; Glucose 102 mg/dl (70-99); Lipase 820 U/L (23-300); Potassium 3.7 mmol/L (3.5-5.1); Sodium 139 mmol/L (135-145); Total Bilirubin 0.3 mg/dl (0.2-1.3); Total Protein 6.3 g/dl (6.3-8.2); eGFR > 60.00
[2024-05-08 11:00] VITALS: BP 141/78
--- NOTE | 2024-05-08 11:50 | W.PN.HOSP.TC ---
Today's Communication/Plan
-
low fat diet
op gi f/u
Assessment / Plan
Assessment / Plan
General: morbidly obese, less distressful,
HEENT: Moist mucous membranes and PERRLA
Respiratory: Clear; No Wheezes, Rales or Rhonchi
Cardiac: S1/S2 and Tachycardia; No Murmur
GI: No RUQ tenderness / rebound. Pos BS. Obese,
Musculoskeletal: No Clubbing, No Cyanosis and No Edema
Neuro: AO x 3
A/P: Patient is a 58y F with PMH significant for hypertension and obesity who presents to ED complaining of abdominal pain.
Acute Pancreatitis
- CT done in the ED this evening shows mild peripancreatic stranding, but no other acute abnormality.
- Some alcohol tonight - but does not drink on any regular basis.
- ? PUD / duodenal ulcer leading to symptoms given several months of regular NSAID use, recent heartburn symptoms, etc.
- GI evaluation for additional recommendations.
- Follow for clinical improvement. MRI abdomen noted.
- Tolerating lOW FAt diet.
- TG wnl. Calcium within normal limits. No trauma. Autoimmune workup. d/w with Dr. Smith-most likely etiology is alcohol induced pancreatitis. Also per GI-she should still have a repeat MRI/MRCP in 6-8 weeks to ensure resolution of
pancreatitis as a structural evaluation and r/o pancreatic cystic lesion. Pt verbalized understanding for f/u with GI
Transaminitis
- Abnormal LFTs in hepatocellular pattern. Normal bili / alk phos.
- hep serologies neg
- Follow for changes.
- GI eval as noted above. H
GERD
- Recent increase in symptoms and regular NSAID use as noted above.
- PPI for now.
- Would avoid NSAIDs in the future.
- GI evaluation +/- endoscopic examination.
Benign Hypertension
- BP somewhat elevated due to acute pain.
- Pt stated of severe flushing with nifedipine. Pt wants to be restarted on lisinopril. Understands to stop if wtih severe abd pain. Been on the meds for years.
- IV meds as needed f
- Efforts at pain control.
Morbid obesity due to excess calories
- Affects all aspects of care.
- Encourage healthy diet and increased exercise with goal of weight loss.
DVT Prophylaxis: SCDs/Lovenox
Code Status: Full
More than 30 minutes spent in discharge including
Final examination of the patient
Summarizing hospital stay
Instructions for continuing care to all relevant caregivers
Preparation of discharge records, prescriptions, and referral forms
Total time spent (in minutes): 52
Anticipated Discharge: Today
Subjective/Interval History
-
Date of Service: May 08, 2024
tolerating diet
mild abd discomfort but no severe pain
Objective Data
-
Labs:
Laboratory Results
05/08/24
09:01
Sodium 139
Potassium 3.7
Chloride 103
Carbon Dioxide 28
BUN 6 L
Creatinine 0.5 L
Glucose 102 H
Calcium 8.9
Total Bilirubin 0.3
AST 73 H
ALT 469 H
Alkaline Phosphatase 146 H
Vital Signs:
Vital Signs
Temp Pulse Resp BP Pulse Ox
98.6 F 78 16 141/78 97
05/08/24 11:00 05/08/24 11:00 05/08/24 11:00 05/08/24 11:00 05/08/24 11:00
--- NOTE | 2024-05-08 11:56 | W.DCSUMMARY ---
Discharge Summary
Discharge Data
Date of Admission: 05/06/24
Date of Discharge: 05/08/24
-
Pending Results: No
Hospital Course
Patient is a 58y F with PMH significant for hypertension and obesity who presents to ED complaining of abdominal pain. Patient was found to have a severely elevated transaminitis and lipase. Patient was found to acute pancreatitis. CT done in
the ED this evening shows mild peripancreatic stranding, but no other acute abnormality. Patient was eval by gastroenterology. Patient was diet aggressive IV fluid resuscitation. Patient was also taking increasing amount of ibuprofen at home.
Patient was started on PPI. Patient underwent MRI of the abdomen. MRI showed Acute INTERSTITIAL EDEMATOUS PANCREATITIS. No MRI evidence for pancreatic necrosis or acute peripancreatic collection. Mild biliary dilatation without evidence for
choledocholithiasis. Previous cholecystectomy. SEVERE DIFFUSE HEPATIC STEATOSIS. Mild hepatosplenomegaly. Mild cardiomegaly. Patient did have alcohol intake prior to arrival to the hospital. Patient triglycerides are within normal limits. Calcium
was within normal limits. No trauma. Patient etiology of pancreatitis likely secondary to alcohol induced was taking biliary sludge. Patient diet was advanced to liquid diet. Patient was tolerating liquid diet and was advanced to low-fat diet.
Patient was tolerating low-fat diet. Initially there was thought process that pancreatitis could be lisinopril induced however lower likelihood and was restarted. Patient LFTs improved. Patient was tolerating diet. Patient already has an
outpatient GI appointment where MRI versus EUS was recommended as outpatient. Patient was also counseled on low-fat diet and weight loss. Patient verbalized understanding.
Discharge Plan
-
Patient Disposition: Home (Routine Discharge)
Discharge Diagnosis/Procedures: Pancreatitis likely secondary to alcohol intake
Condition: Fair
Diet: Low Fat
Blood Work: Liver function test (2 weeks after DC), lab slip given to patient by GI.
Others Tests: Repeat MRI/MRCP in 6-8 weeks with coat feller to ensure resolution of pancreatitis as a structural evaluation and rule out pancreatic cystic lesion
Referrals:
Connor Faust MD [Family Provider] - in less than 1 week
Rafael Smith DO [Active] - 06/24/24 11:30 am (Please have labs (Liver function tests performed 2 weeks after discharge))
Prescriptions:
New
pantoprazole [Protonix] 40 mg tablet,delayed release (DR/EC)
40 mg PO DAILY Qty: 30 0RF
Continued
lisinopril 10 MG tablet
10 mg PO DAILY
Discontinued
ibuprofen [Advil] 200 mg Tablet
400 mg PO DAILYPRN PRN (Reason: mild pain)
Discharge Orders:
Discharge Patient (As Directed); Ordered 05/08/24
Ordered By: Bogdan Claudio
Discharge Date and Time
Print Language: CITIZEN OF [place]
--- NOTE | 2024-05-08 12:14 | W.PN.GI.CBS2 ---
Today's Communication / Plan
-
Continuing to improve in regards to her pancreatitis. LFTs down-trending and suspect secondary to sludge/debris given her markedly elevated LFTs. Would benefit from EUS as an outpatient. See rest of care as outlined below. GI team will sign-off,
please re-engage if any questions or concerns.
Assessment / Plan
-
58year-old female with past medical history of hypertension, gallstones pancreatitis status postcholecystectomy 2020, knee osteoarthritis who presents to the emergency room with acute onset of epigastric pain. Asked to evaluate for pancreatitis.
This occurred after having 2 glasses of wine and empanadas. Patient states it felt similar to when she had her prior episode of gallstone pancreatitis in [address] imaging showing prior cholecystectomy with mild prominence
of the CBD which measures 1.0 cm likely reservoir effect in the setting of prior cholecystectomy. Questionable faint stranding along the pancreatic head which may represent early pancreatitis. Hepatic steatosis. Patient still with significant
epigastric/periumbilical tenderness. WBC 8.4, hemoglobin 14.0, hematocrit 42.1, platelets 299, MCV 84.2, MCH 28.0, Sodium 140, potassium 4.3, chloride 103, CO2 26, BUN 13, creatinine 0.5, glucose 148, total bilirubin 1.0, AST 626, ALT 549, alk phos
121, lipase greater than 4000.
#Acute, Recurrent Pancreatitis
-- Second episode. First episode was presumed to be secondary to gallstone pancreatitis. (2020)
#Elevated LFTs
#Biliary Ductal Dilation
MRI/MRCP 05/07/24: Acute interstitial edematous pancreatitis, mild biliary ductal dilatation without any evidence of choledocholithiasis, prior CCY, and severe diffuse hepatic steatosis ; repeat LFTs improving
Suspect patient may have passed sludge/debris given her previous ductal dilatation (although possibly reservoir effect from prior CCY) and her significantly elevated LFTs on admission. Doubt alcohol as the culprit given that she only drank three
drinks over the weekend (prior to presentation) and again would not account fo her elevated LFTs. Fortunately, she is improving from a pancreatitis and would benefit from outpatient follow-up.
Recommendations:
- Low-fat diet as tolerated
- Trend serial LFTs q daily, fractionated T Bili and D Bili q daily- now improving
- Acute hepatitis panel (-)
- Defer further serologic w/u at this time, suspect she may have mild elevations of her transaminases secondary to MASLD/MASH, but would benefit from outpatient eval
- Hypertriglyceridemia r/o (nml TGs 86), pending IgG4 for AI w/u
- Would benefit from an eventual EUS in 8-12 weeks given her suspected biliary pancreatitis to r/o sludge within her CBD along with structural evaluation of her pancreas. Again, can be arranged as outpatient
- Continue bowel regimen
- Pain control and IV anti-emetics PRN
- Rest of care per primary team
Discussed with primary internal medicine team this afternoon. GI follow-up arranged prior to discharge.
GI team will sign-off, please recontact with any questions or concerns.
Subjective
Subjective
Date of Service: May 08, 2024
- MRI/MRCP 05/07/24: Acute interstitial edematous pancreatitis, mild biliary ductal dilatation without any evidence of choledocholithiasis, prior CCY, and severe diffuse hepatic steatosis
- Repeat LFTs improving
- Otherwise, no acute events overnight
Feeling well this morning, continues to deny any abdominal pain or discomfort. No nausea or vomiting. Having bowel function with reported BM yesterday evening and passing flatus. Discussed results of recent MRI/MRCP.
Objective
Data Reviewed
Laboratory Data:
Laboratory Results
05/07/24 06:37
05/08/24 09:01
Laboratory Results
Total Bilirubin 0.3 mg/dl (0.2-1.3) 05/08/24 09:01
AST 73 U/L (14-36) H 05/08/24 09:01
ALT 469 U/L (0-35) H 05/08/24 09:01
Alkaline Phosphatase 146 U/L (38-126) H 05/08/24 09:01
Lipase 820 U/L (23-300) H 05/08/24 09:01
Vital Signs and I&O:
Vital Signs
Temp Pulse Resp BP Pulse Ox
98.6 F 78 16 141/78 97
05/08/24 11:00 05/08/24 11:00 05/08/24 11:00 05/08/24 11:00 05/08/24 11:00
Physical Exam
Physical Exam
HEENT: Anicteric and Moist mucous membranes
Cardiology: Normal Sinus Rhythm
Pulmonary: Clear
GI: Soft, Non Distended and Non Tender
Extremities: No Edema
Neuro: Non Focal
[2024-05-08 15:16] VITALS: BP 152/82
[2024-05-09 05:04] LABS: IgG Subclass 4 117 mg/dL (1-123)
== END 2024-05-08 18:38 | disposition home or self-care (01) | DRG 440 ==
LOC: 3 WEST ACU 05:46
PROVIDERS: Nurse Practitioner; ADMITTING PHYSICIAN Hospitalist; ATTENDING PHYSICIAN Hospitalist; CONSULT PHYSICIAN Student in an Organized Health Care Education/Training Program; EMERGENCY PHYSICIAN Emergency Medicine; FAMILY PHYSICIAN Internal Medicine
DX: K85.20 Alcohol induced acute pancreatitis without necrosis or infection (principal); I10 Essential (primary) hypertension; E66.09 Other obesity due to excess calories; Z68.38 Body mass index [BMI] 38.0-38.9, adult; Z90.49 Acquired absence of other specified parts of digestive tract; K76.0 Fatty (change of) liver, not elsewhere classified; Z87.891 Personal history of nicotine dependence; Z96.653 Presence of artificial knee joint, bilateral; Z88.2 Allergy status to sulfonamides; K26.9 Duodenal ulcer, unspecified as acute or chronic, without hemorrhage or perforation; K21.9 Gastro-esophageal reflux disease without esophagitis; M17.10 Unilateral primary osteoarthritis, unspecified knee; Z88.1 Allergy status to other antibiotic agents; Z79.899 Other long term (current) drug therapy; D25.9 Leiomyoma of uterus, unspecified
CPT/HCPCS: 74177; 74183; 80053; 80061; 82248; 82787; 83036; 83690; 84478; 84484; 85025; 85027; 86706; 86709; 86803; 87340; 93005; 96374; 96375; 96376; 99285; A9575; Q9967

== ENCOUNTER → 2024-05-23 14:31 | Outpatient (REF) | payer BC, SELFPAY ==
[2024-05-23 16:01] LABS: ALT (SGPT) 50 U/L (0-35); AST (SGOT) 21 U/L (14-36); Albumin 4.6 g/dl (3.5-5.0); Alkaline Phosphatase 93 U/L (38-126); Blood Urea Nitrogen 13 mg/dl (7-17); Calcium 9.5 mg/dl (8.4-10.2); Carbon Dioxide 28 mmol/L (22-30); Chloride 99 mmol/L (98-107); Direct Bilirubin 0.1 mg/dl (0.0-0.4); Glucose 115 mg/dl (70-99); IgA 282 mg/dl (70-400); Iron 65 ug/dl (37-170); Potassium 4.5 mmol/L (3.5-5.1); Sodium 137 mmol/L (135-145); Total Bilirubin 0.6 mg/dl (0.2-1.3); Total Protein 7.4 g/dl (6.3-8.2); eGFR > 60.00
[2024-05-23 16:10] LABS: Percent Saturation 25 % (20-50); Total Iron Binding Capacity 255 ug/dl (265-497)
[2024-05-23 20:41] LABS: Hepatitis B Surface Antigen Negative (Negative)
[2024-05-23 20:59] LABS: Hepatitis A Antibody, Total Negative (Negative); Hepatitis B Surface Antibody Negative; Hepatitis C Antibody Negative (Negative)
[2024-05-24 04:03] LABS: Hepatitis B Core Ab, IgM Negative (Negative)
[2024-05-26 07:51] LABS: tTG IgA Antibody <1.02 FLU (0.00-4.99)
== END ==
LOC: REG 14:31
PROVIDERS: ATTENDING PHYSICIAN Student in an Organized Health Care Education/Training Program; FAMILY PHYSICIAN Internal Medicine
DX: R79.89 Other specified abnormal findings of blood chemistry (principal); K75.81 Nonalcoholic steatohepatitis (NASH); K85.00 Idiopathic acute pancreatitis without necrosis or infection
CPT/HCPCS: 36415; 80053; 82248; 82728; 82784; 83540; 83550; 86364; 86705; 86706; 86708; 86803; 87340

== ENCOUNTER → 2024-07-30 08:06 | Outpatient (REF) | payer BC, SELFPAY ==
[2024-07-30 09:27] LABS: % Basophils 0.6 % (0-2); % Eosinophils 1.8 % (0-6); % Immature Granulocytes 0.3 % (0-0.5); % Lymphocytes 29.7 % (20.5-51.1); % Monocytes 5.9 % (1.7-9.3); % Neutrophils 61.7 % (42.2-75.2); Absolute Basophils 0.1 10^3/uL (0-0.2); Absolute Eosinophils 0.1 10^3/uL (0-0.7); Absolute Lymphocytes 2.3 10^3/uL (1.2-3.4); Absolute Monocytes 0.5 10^3/uL (0.1-0.6); Absolute Neutrophils 4.8 10^3/uL (1.4-6.5); Hematocrit 41.5 % (37.0-47.0); Hemoglobin 13.3 g/dL (12.0-16.0); Mean Corpuscular Hgb 27.6 pg (27.0-31.0); Mean Corpuscular Volume 86.1 fL (81.0-99.0); Mean Platelet Volume 10.2 fL (7.4-10.4); Nucleated Red Blood Cells % 0 %; Platelet Count 306 10^3/uL (130-400); Red Blood Cell Count 4.82 10^6/uL (4.20-5.40); Red Cell Dist. Width 13.7 % (11.5-14.5); White Blood Cell Count 7.8 10^3/uL (4.8-10.8)
[2024-07-30 09:35] LABS: APTT 29.5 Sec (23.4-35.0); INR 1.01; PT 13.7 Sec (11.4-14.6)
[2024-07-30 09:41] LABS: ALT (SGPT) 23 U/L (0-35); AST (SGOT) 13 U/L (14-36); Albumin 4.2 g/dl (3.5-5.0); Alkaline Phosphatase 92 U/L (38-126); Blood Urea Nitrogen 12 mg/dl (7-17); Calcium 9.3 mg/dl (8.4-10.2); Carbon Dioxide 27 mmol/L (22-30); Chloride 105 mmol/L (98-107); Glucose 101 mg/dl (70-99); Iron 77 ug/dl (37-170); Potassium 4.3 mmol/L (3.5-5.1); Sodium 141 mmol/L (135-145); Total Bilirubin 0.5 mg/dl (0.2-1.3); eGFR > 60.00
[2024-07-30 10:13] LABS: TSH Reflex To Free T4 1.92 uIU/ml (0.47-4.68)
[2024-07-30 10:16] LABS: Ferritin 51.4 ng/ml (11.1-264.0)
[2024-07-31 13:53] LABS: IgG Subclass 1 556 mg/dL (240-1118); IgG Subclass 2 351 mg/dL (124-549); IgG Subclass 3 54 mg/dL (21-134); IgG Subclass 4 115 mg/dL (1-123)
[2024-07-31 20:04] LABS: ANA, IgG Reflex to HEp-2 None Detected (None Detected)
[2024-07-31 23:56] LABS: IgA 264 mg/dl (70-400); IgG 1180 mg/dl (700-1600); IgM 136 mg/dl (40-230)
[2024-08-01 01:13] LABS: LKM-1 Ab (IgG) 0.8 U (0.0-24.9)
[2024-08-01 01:23] LABS: F-Actin Antibody IgG 11 Units (0-19); Mitochondrial M2 Ab, IgG 3.6 Units (0.0-24.9)
[2024-08-01 07:28] LABS: Ceruloplasmin 26 mg/dL (16-45)
[2024-08-01 22:49] LABS: Soluble Liver Antigen Ab 1.5 U (0.0-24.9)
== END ==
LOC: HWLAB 08:06
PROVIDERS: ATTENDING PHYSICIAN Student in an Organized Health Care Education/Training Program; FAMILY PHYSICIAN Internal Medicine
DX: K76.0 Fatty (change of) liver, not elsewhere classified (principal)
CPT/HCPCS: 36415; 80053; 82103; 82104; 82390; 82728; 82784; 82787; 83516; 83540; 84443; 85025; 85610; 85730; 86015; 86038; 86376; 86381

== ENCOUNTER 2024-09-05 06:24 | Day surgery (SDC) | payer BC, SELFPAY ==
[2024-09-05 06:46] VITALS: BMI 36.8
[2024-09-05 06:56] VITALS: BMI 36.8
[2024-09-05 06:57] VITALS: BP 137/77
[2024-09-05 09:30] VITALS: BP 114/75
[2024-09-05 09:45] VITALS: BP 115/65
[2024-09-05 10:00] VITALS: BP 113/64
== END 2024-09-05 10:20 | disposition home or self-care (01) ==
LOC: GI 06:24
PROVIDERS: ATTENDING PHYSICIAN Internal Medicine Gastroenterology
DX: K31.7 Polyp of stomach and duodenum (principal); K83.8 Other specified diseases of biliary tract; K85.90 Acute pancreatitis without necrosis or infection, unspecified; R93.2 Abnormal findings on diagnostic imaging of liver and biliary tract; K86.9 Disease of pancreas, unspecified
CPT/HCPCS: 43237

== ENCOUNTER 2024-10-13 06:24 | Inpatient (IN) | payer BC, SELFPAY ==
[2024-10-13] VITALS (8 sets, daily range): BP systolic 111–176; BP diastolic 60–109; BMI 38.9
[2024-10-13 01:26] LABS: Hematocrit 41.7 % (37.0-47.0); Hemoglobin 14.2 g/dL (12.0-16.0); Mean Corp Hgb Conc. 34.1 g/dL (33.0-37.0); Mean Corpuscular Volume 83.4 fL (81.0-99.0); Nucleated Red Blood Cells % 0 %; Platelet Count 306 10^3/uL (130-400); Red Cell Dist. Width 13.1 % (11.5-14.5)
[2024-10-13] MEDS: TORADOL 15 MG IV (01:31)
[2024-10-13] MEDS: ZOFRAN 4 MG IV ×3 (01:32→08:59)
[2024-10-13] MEDS: NSS 1000 IV ×4 (01:34→23:19)
[2024-10-13 01:50] LABS: ALT (SGPT) 20 U/L (0-35); AST (SGOT) 15 U/L (14-36); Albumin 4.5 g/dl (3.5-5.0); Alkaline Phosphatase 104 U/L (38-126); Blood Urea Nitrogen 19 mg/dl (7-17); Calcium 10.0 mg/dl (8.4-10.2); Carbon Dioxide 20 mmol/L (22-30); Chloride 108 mmol/L (98-107); Glucose 170 mg/dl (70-99); Potassium 4.1 mmol/L (3.5-5.1); Sodium 138 mmol/L (135-145); Total Protein 7.6 g/dl (6.3-8.2); eGFR > 60.00
[2024-10-13 02:37] LABS: Urine Character Clear (Clear)
[2024-10-13 03:29] LABS: Urine White Cell 0-2 /HPF (0-5)
[2024-10-13] MEDS: MORPHINE SULFATE IV (05:21)
[2024-10-13] MEDS: ROCEPHIN 1000 MG IV (05:21)
[2024-10-13] MEDS: MORPHINE SULFATE 4 MG IV (05:31)
--- NOTE | 2024-10-13 05:48 | HPS.HSE ---
Addendum entered and electronically signed by Ying Us MD 10/13/24 06:05:
start flomax
Original Note:
Family Physician
-
Family Physician: Connor Faust
Chief Complaint
-
flank pain
History of Present Illness
Ms. Laura Gar is a 59 yo woman with hx essential HTN, anxiety presents to the ER with flank pain.
Patient states pain started last night. It stretches from right back to front. + nausea, no vomiting. No fevers. No dysuria.
No chest pain or shortness of breath.
Medical History
Past Medical History
Past Medical History: Reports Other
Additional Past Medical History:
Hypertension
Obesity
Past Surgical History: Reports Other
Additional Past Surgical History:
Cholecystectomy
Bilateral TKA
x 2
Social History
Tobacco: Non-smoker
Alcohol: Occasional
Drug: None
Family History
Family History: Not pertinent
Allergies / Home Medications
Allergies reflects when Allergies were last updated in [facility].
Home Medications with original date entered in [facility]
Allergy/Medication List:
*awaiting home med rec
Review of Systems
-
History Source: Patient
A 12 point ROS was completed and negative except as noted: Yes
Physical Exam
Vital Signs
Vital Signs
Temp Pulse Resp BP Pulse Ox
98.2 F 99 24 176/109 100
10/13/24 00:54 10/13/24 00:54 10/13/24 00:54 10/13/24 00:54 10/13/24 00:54
Physical Exam
General: Pain
HEENT: PERRLA
Respiratory: Clear; No Wheezes
Cardiac: S1/S2 and Regular Rhythm
GI: Soft and Non Tender
Musculoskeletal: No Edema
Skin: Warm and Dry; No Rash
Neuro: AO x 3
Psych: Calm
Laboratory Results
-
10/13/24 01:21
10/13/24 01:21
Laboratory Results
Total Bilirubin 0.4 mg/dl (0.2-1.3) 10/13/24 01:21
AST 15 U/L (14-36) 10/13/24 01:21
ALT 20 U/L (0-35) 10/13/24 01:21
Alkaline Phosphatase 104 U/L (38-126) 10/13/24 01:21
Data Reviewed
-
Diagnostic Radiology: Report Reviewed by me
Lab Data: Labs Reviewed by me
Impression/Plan
-
Ms. Laura Gar is a 59 yo woman with hx essential HTN, anxiety presents to the ER with flank pain.
Triage VS, patient afebrile, hypertensive to 176/109. Labs with WBC 11.1, Hg 14.2, PLT 306, Na 138, K+ 4.1, Cl 108, CO2 20, BUN 19, Cr 0.7, Glucose 170, liver enzymes WNL
UA with 0-2 WBC
Abdomen/Pelvis CT with obstructing 6mm right ureterovesical junction calculus with associated mild right hilar nephrosis. Moderate right perinephric free fluid which may represent a forniceal rupture.
MAR: IV Ceftriaxone, IV Toradol, IV Morphine, IV Zofran x 2, NS fluids
Obstructing nephrolithiasis with possible forniceal rupture
-Dr. Ritchie aware of admission
-admit to med/surg
-NS @ 100
-NPO
-pain control with IV Morphine PRN
-continue IV Ceftriaxone
-follow up further Urology rec on possible OR later today
Essential HTN
*awaiting med rec
DVT PPx SCD
FULL CODE
--- NOTE | 2024-10-13 07:07 | ED.GENMED ---
History of Present Illness
General
Chief Complaint: Flank Pain
Source: patient and records
Exam Limitations: none
Time Seen by Provider: 10/13/24 04:43
Nursing documentation reviewed up to this point in time: agreed with
History of Present Illness
History of Present Illness:
59-year-old female with a past medical history as noted presents to the ER for evaluation of flank pain. Patient reports symptoms started this evening and have been constant since that time. She reports a sharp pain in the right flank that
radiates towards the right lower abdomen/groin. No clear triggering or relieving factors noted. Of note she reports that over the past 3 days she has been having increased urinary frequency and bladder pressure; she was seen in urgent care and
prescribed Macrobid which she has been taking x 3 days until she developed flank pain tonight which prompted ER visit. She has not had fevers or chills. She has had nausea but no vomiting. No diarrhea or constipation. She denies any other
complaints. She denies similar symptoms in the past.
Past History
Past History
ED Past Medical History: GERD, HTN and Other (Gallstone pancreatitis January 2021)
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
Social History
Tobacco: Former smoker
Alcohol: Occasional
Drug: None
Personal:
Living: with family
Employment: Employed
Family History
Family History: Other (Noncontributory)
Review of Systems
Review of Systems
All Other Systems: ROS reviewed and negative except as documented in HPI and ROS
Constitutional: Denies fever or chills
Respiratory: Denies trouble breathing
Cardiac: Denies chest pain
ABD/GI: Reports abdominal pain and nausea; Denies vomiting, diarrhea or constipated
: Reports frequency and flank pain; Denies dysuria or bleeding
Musculoskeletal: Denies neck pain
Neurological: Denies headache
Phy Exam
Physical Exam
Physical Exam:
General: Awake, alert, oriented x3; appears uncomfortable
Head: Normocephalic, atraumatic
Eyes: Conjunctiva normal, sclera anicteric
Throat: Airway intact, handling secretions
Neck: Trachea midline, supple without meningismus
Lungs: Clear to auscultation bilaterally, no wheezing, rales, rhonchi
Heart: Regular rate and rhythm, no murmurs, gallops, or rubs
Abd: Soft, non distended, tender in the right midabdomen
Back: No CVA tenderness
Neuro: No gross deficits
Skin: no rash in area of concern
Extremities: No edema in extremities, equal pulses in all extremities
Scores
Heart Failure Risk
Heart Failure Risk Score: Not Applicable
Heart Score for Chest Pain Patients
STEMI patient?: Not applicable
Withdrawal Assessment of Alcohol
Withdrawal Assessment Completed?: Not applicable
Course
Orders/Labs/Results
Orders:
Orders
10/13/24 01:21
CMP [Comprehensive Metabolic Panel] Urgent
Complete Blood Count/With Diff Urgent
10/13/24 01:24
Ketorolac [Toradol] 15 mg IV NOW STA
Ondansetron Injectable [Zofran] 4 mg IV NOW STA
10/13/24 01:33
0.9% Sodium Chloride 1000 ml [Nss] 1,000 ml IV BOLUS
10/13/24 02:27
Urinalysis Reflex To Culture Urgent
Date Specimen was Collected: 10/13/24
Time Specimen was Collected: 02:23
Urine Microscopic Reflex Cult Urgent
10/13/24 02:43
CT Abd/pel Without Iv Or Oral Urgent
Comment:
Reason For Exam: R flank pain
10/13/24 03:45
Blood Culture Q30M
MAURY Source: Blood/Venous
Specimen Description:
10/13/24 04:15
Blood Culture Q30M
MAURY Source: Blood/Venous
Specimen Description:
10/13/24 04:53
CefTRIAXone [Rocephin] 1,000 mg IV NOW STA
Morphine Sulfate 4 mg IV NOW STA
10/13/24 04:54
UROLOGY CONSULT Urgent
Consulting Provider: Jh Ritchie
Was physician already notified: Yes
10/13/24 05:28
Ondansetron Injectable [Zofran] 4 mg .ROUTE .STK-MED ONE
Ondansetron Injectable [Zofran] 4 mg IV NOW STA
10/13/24 05:54
EKG [Electrocardiogram (*1)] Routine
Reason for Study: QTc Monitoring
10/13/24 05:59
Admit/Transfer Patient As Directed
Co-Sign Provider:
Level of Care: Inpatient admission
Assign to:: Medical/Surgical
Physician / Group: Ying Us
Diagnosis: obstructing nephrolithiasis
Reason for Hospitalization: obstructing nephrolithiasis
Expected length of stay greater than two midnights?: Yes
ELOS- Estimated Length of Stay in days: 3
I certify the patient meets the requirements for IP care: Yes
Code Status As Directed
Resuscitation Status: Full Code
PRN Pain Medication Management As Directed
May give lesser potent ordered pain med per pt: Yes
preference::
Protocol:: Medication orders for pain may be administered in a
manner that supports deferring to patient preference
when the pt is:
- Requesting an ordered lesser potent pain medication.
Least to most potent pain medications are defined
as: acetaminophen < NSAID < tramadol < opioids
(morphine, oxycodone, hydromorphone).
- Requesting a lesser dose of the same medication IF
ORDERED.
- Requesting a less intrusive route of administration
if both routes are prescribed by the provider (PO <
IV).
Abnormal Lab Results
10/13/24 10/13/24
01:21 02:27
WBC 11.1 H 10^3/uL
(4.8-10.8)
Absolute Neuts (auto) 7.8 H 10^3/uL
(1.4-6.5)
Absolute Monos (auto) 0.7 H 10^3/uL
(0.1-0.6)
Chloride 108 H mmol/L
(98-107)
Carbon Dioxide 20 L mmol/L
(22-30)
BUN 19 H mg/dl
(7-17)
Glucose 170 H mg/dl
(70-99)
Urine Ketones 1+ A
(Negative)
Ur Occult Blood Reflex 1+ A
(Negative)
Urine RBC 7-10 A /HPF
(0-2)
Urine Bacteria (Reflex) Few A
(Negative)
10/13/24 01:21
10/13/24 01:21
Vital Signs
Initial and Last Documented VS:
Initial Vital Signs
Temp Pulse Resp BP Pulse Ox
36.8 C 99 24 176/109 100
10/13/24 00:54 10/13/24 00:54 10/13/24 00:54 10/13/24 00:54 10/13/24 00:54
Last Documented Vital Signs
Temp Pulse Resp BP Pulse Ox
36.8 C 74 16 152/77 96
10/13/24 00:54 10/13/24 05:50 10/13/24 05:50 10/13/24 05:50 10/13/24 05:50
MDM/Problems Addressed
Differential Diagnosis Includes:
Nephrolithiasis, pyelonephritis, cholelithiasis, appendicitis, ovarian cyst
MDM/Problems Addressed:
59-year-old female presents for evaluation of right flank pain that started this evening in the setting of recent UTI treatment. Vitals and exam as above. Labs were sent off including CBC which shows a slight leukocytosis. CMP shows marginal
metabolic acidosis; acceptable renal function. LFTs normal. Her urinalysis shows positive blood, few bacteria no significant pyuria and some squamous cells suggest some contamination. CT abdomen pelvis shows 6 mm obstructive stone at the UVJ on
the right with associated hydronephrosis; she also has significant right perinephric free fluid which is concerning for forniceal rupture. She has required multiple rounds of pain medication here�will admit for continued management of symptoms and
urology consultation�I did discuss with urologist for evaluation. Will cover with Rocephin�although urinalysis reassuring she does have leukocytosis and has been on antibiotics for a few days which could affect urinalysis. Urine culture sent off.
Discussed with hospitalist for admission.
*Radiology
Radiology exam reviewed: radiology read reviewed
*Pulse Oximetry
SaO2: 96
Oxygen Mode of Delivery: Room air
Patient hypoxic: no (96%)
*Critical Care Note
Total Time (30-74mins, 75-104mins- exclusive of procedures): Not Applicable
Data Reviewed
Source: patient and spouse
Patient Management
Discussion with other providers: Hospitalist (Discussed with hospitalist) and Fly Maker (Discussed with urologist)
Escalation/DeEscalation of care consider admission/obs:
Admission indicated
ED Attending Note
-
Portions of this chart may have been created with voice recognition software.� Occasional wrong word or��sound alike� substitutions may have occurred due to the inherent limitations of voice recognition software.
Discharge Plan
Departure
Patient Disposition: Admit
Date of Disposition: 10/13/24
Time of Disposition: 04:56
Admit to doctor: Magen
Presentation/result/management discussed w/ accepting MD/DO: Hospitalist
Discharge Problem:
Right nephrolithiasis
Interventions
Interventions:
*Risk Screen - Suicide Last Done: 10/13/24 00:54
*General Assessment Last Done: 10/13/24 05:34
*Neglect/Abuse Screening Last Done: 10/13/24 00:54
*ED- Fall Risk Assessment Last Done: 10/13/24 00:54
*ED COVID-19 Vaccine History Last Done: 10/13/24 05:50
DQ-Wzdxiz-Ynalzrbbmo Assessment Last Done: 10/13/24 03:34
ED-Female Genitourinary Assessment Last Done: 10/13/24 03:34
[2024-10-13] MEDS: TORADOL 10 MG IV (09:00)
--- NOTE | 2024-10-13 09:00 | W.PN.URO.CBU ---
Today's Communication / Plan
-
to or today
Assessment / Plan
-
rt distal stone pain not controlled and rt fornoceal ruptiure non toxic will attempt removal and stenting iv abs
Diagnosis
-
Date of Service: October 13, 2024
-
Patient Diagnosis:
rt ureteral stone with forniceal rupture
Post Op Day:
Subjective
-
severe pain no fever nor chills
Objective
-
Vital Signs
Temp Pulse Resp BP Pulse Ox
97.7 F 78 20 176/92 99
10/13/24 08:50 10/13/24 08:50 10/13/24 08:50 10/13/24 08:50 10/13/24 08:50
Laboratory Results
10/13/24 01:21
10/13/24 01:21
Review of Systems
-
Abdomen/GI: Nausea
: Flank Pain and Urgency
Physical Exam
-
General - well developed, well nourished, no acute distress
Chest - clear bilaterally
Abdomen - soft, non-tender, positive bowel sounds, no CVAT, no incisional pain or distention
Genitalia - normal
Rectal - normal
Skin - warm & dry with no rash
Neuro - AOx3, no motor deficits
Extremities - no clubbing, no cyanosis, no edema
Incision - clean, dry
Dressing - clean, dry, intact
Care Review
Data Reviewed
Discussed with: Nursing
CT Scan: Image Pers Reviewed
Total Time Spent with Patient (in minutes): 65
--- NOTE | 2024-10-13 12:29 | PTCARENOTE ---
patient arrived to unit. ambulated to bathroom. patient voiding post procedure. Ox4. VSS.
--- NOTE | 2024-10-13 13:03 | W.PN.UPDATE ---
Update Note
Progress Note Update
Seen postop. States feels little bit tired. Voiding without difficulty.. States noticing mild blood in the urine. Currently comfortable in bed. Talking comfortably.
.
Abdomen/Pelvis CT with obstructing 6mm right ureterovesical junction calculus with associated mild right hilar nephrosis. Moderate right perinephric free fluid which may represent a forniceal rupture.
#Obstructing nephrolithiasis with possible forniceal rupture
Status post stabilization in the operating room by Dr. Ritchie
Status post ureteral stent placement. Awaiting op report
Continue with IV fluids. Continue with IV antibiotics. Per urology discharge patient on p.o. antibiotic due to rt fornoceal rupture
Monitor postop. Restart diet.
Pain control.
Per patient she was to discuss further about duration of ureteral stent and when is it safe to remove as patient going on a trip for 2 weeks 10/26. Defer to Urology.
Essential HTN
*awaiting med rec
DVT PPx SCD
FULL CODE
[2024-10-13] MEDS: TYLENOL 650 MG PO (20:27)
[2024-10-13] MEDS: MIRALAX 17 GRAMS PO (21:15)
[2024-10-14] MEDS: ROCEPHIN 1000 MG IV (06:07)
[2024-10-14] MEDS: TYLENOL 650 MG PO (06:07)
[2024-10-14] MEDS: STERILE WATER FOR INJECTION 10 ML IV (06:07)
[2024-10-14 07:30] VITALS: BP 139/68
[2024-10-14 07:42] LABS: Hematocrit 36.1 % (37.0-47.0); Hemoglobin 11.8 g/dL (12.0-16.0); Mean Corp Hgb Conc. 32.7 g/dL (33.0-37.0); Mean Corpuscular Volume 84.9 fL (81.0-99.0); Nucleated Red Blood Cells % 0 %; Platelet Count 247 10^3/uL (130-400); Red Cell Dist. Width 13.3 % (11.5-14.5)
[2024-10-14] MEDS: ZESTRIL 10 MG PO (08:25)
[2024-10-14 08:29] LABS: Blood Urea Nitrogen 11 mg/dl (7-17); Calcium 8.9 mg/dl (8.4-10.2); Carbon Dioxide 22 mmol/L (22-30); Chloride 112 mmol/L (98-107); Estimated Creatinine Clearance > 125 ml/min; Glucose 110 mg/dl (70-99); Magnesium 2.1 mg/dl (1.6-2.3); Potassium 4.2 mmol/L (3.5-5.1); Sodium 140 mmol/L (135-145); eGFR > 60.00
--- NOTE | 2024-10-14 08:35 | W.PN.URO.CBU ---
Today's Communication / Plan
-
per hopsita;lit but ok to d/c if blood cxs are neg
Assessment / Plan
-
rt distal stone pain not controlled and rt fornoceal ruptiure non toxic await blod xs but if neg home onpo abs for stent removal
Diagnosis
-
Date of Service: October 14, 2024
-
Patient Diagnosis:
Post Op Day:
Patient Diagnosis:
rt ureteral stone with forniceal rupture
Post Op Day:
Subjective
-
feeling better
Objective
-
Vital Signs
Temp Pulse Resp BP Pulse Ox
97.8 F 79 20 135/67 98
10/13/24 23:31 10/13/24 23:31 10/13/24 23:31 10/13/24 23:31 10/13/24 23:31
Intake and Output
10/13/24 10/14/24 10/15/24
06:59 06:59 06:59
Intake Total 630 / 630
Balance 630 / 630
Intake:
Oral fluids 480 / 480
IV fluids (Total) 150 / 150
normosool 150 / 150
Other:
Number of approximated MODERATE 2
amounts of urine
Number of approximated LARGE 1
amounts of urine
Laboratory Results
10/14/24 06:41
10/14/24 06:41
Review of Systems
-
: Urgency
Physical Exam
-
General - well developed, well nourished, no acute distress
Chest - clear bilaterally
Abdomen - soft, non-tender, positive bowel sounds, no CVAT, no incisional pain or distention
Genitalia - normal
Rectal - normal
Skin - warm & dry with no rash
Neuro - AOx3, no motor deficits
Extremities - no clubbing, no cyanosis, no edema
Incision - clean, dry
Dressing - clean, dry, intact
Care Review
Data Reviewed
Discussed with: Nursing
--- NOTE | 2024-10-14 10:10 | W.PN.HOSP.TC ---
Today's Communication/Plan
-
dc home
Assessment / Plan
Assessment / Plan
Abdomen/Pelvis CT with obstructing 6mm right ureterovesical junction calculus with associated mild right hilar nephrosis. Moderate right perinephric free fluid which may represent a forniceal rupture.
#Obstructing nephrolithiasis with possible forniceal rupture
Status post stabilization in the operating room by Dr. Ritchie
Status post ureteral stent placement. Awaiting op report
Continue with IV fluids. Continue with IV antibiotics. Per urology discharge patient on p.o. antibiotic due to rt fornoceal rupture
Monitor postop. Restart diet.
Pain control.
po abx for additional 5 days. Got few doses IV here.
Essential HTN
lisinopril
DVT PPx SCD
FULL CODE
More than 30 minutes spent in discharge including
Final examination of the patient
Summarizing hospital stay
Instructions for continuing care to all relevant caregivers
Preparation of discharge records, prescriptions, and referral forms
Total time spent (in minutes): 52
Anticipated Discharge: Today
Subjective/Interval History
-
Date of Service: October 14, 2024
states urine is yellow. No blood noted
Objective Data
-
Labs:
Laboratory Results
10/14/24
06:41
WBC 10.0
Hgb 11.8 L
Hct 36.1 L
Plt Count 247
Sodium 140
Potassium 4.2
Chloride 112 H
Carbon Dioxide 22
BUN 11
Creatinine 0.5 L
Glucose 110 H
Calcium 8.9
Vital Signs:
Vital Signs
Temp Pulse Resp BP Pulse Ox
97.7 F 58 20 139/68 97
10/14/24 07:30 10/14/24 07:30 10/14/24 07:30 10/14/24 07:30 10/14/24 07:30
I&O
10/13/24 10/14/24 10/15/24
06:59 06:59 06:59
Intake Total 630 / 630
Balance 630 / 630
Physical Exam
-
General: Well Developed and No Apparent Distress
HEENT: Normocephalic, Atraumatic and Moist Mucous Membranes
Respiratory: Non Labored Respirations; Negative Accessory Resp Muscle Use
Cardiac: Negative Murmur, Rub or Gallop
GI: Soft, Nontender, Nondistended and Normal Bowel Sounds; Negative Organomegaly
Rectal: Deferred by Provider
Musculoskeletal: No Clubbing, No Cyanosis and No Edema
Skin: Negative Rash
Neuro: Awake, AO x 3, No Motor Deficits and Nonfocal/Grossly Intact
Psych: Calm
--- NOTE | 2024-10-14 10:16 | W.DCSUMMARY ---
Discharge Summary
Discharge Data
Date of Admission: 10/13/24
Date of Discharge: 10/14/24
-
Pending Results: No
Hospital Course
59-year-old female past medical history of hypertension, anxiety was presented to the hospital complaining of left flank pain. Abdomen/Pelvis CT with obstructing 6mm right ureterovesical junction calculus with associated mild right hilar nephrosis.
Moderate right perinephric free fluid which may represent a forniceal rupture. Patient was eval by urology and patient went to the operating room. Patient underwent right ureteroscopy, stone extraction with basket and right double-J stent
placement. Postop patient did well. Pathology patient to be discharged on p.o. antibiotics. Patient blood cultures were negative. Patient was tolerating diet. Patient said the hematuria resolved. Patient to follow-up with urology for
ureteral stent removal.
Discharge Plan
-
Patient Disposition: Home (Routine Discharge)
Discharge Diagnosis/Procedures: Obstructing nephrolithiasis with possible forniceal rupture Status post ureteral stent placement.
Condition: Fair
Diet: As tolerated
Activity: As tolerated
Driving Restrictions: As prior to admission
Referrals:
Jh Ritchie MD [Active, Urology]
Referral Note: you have a stent from kidneyto bladder Expect frequency urgency blood in urine and rt sided discomfort the entire time stent is in place Call Dr Ritchei [phone] monday to schedule stent removal
Connor Faust MD [Family Provider, Internal Medicine] - in less than 1 week
Prescriptions:
New
cefpodoxime 200 mg tablet
200 mg PO BID Qty: 12 0RF
Continued
lisinopril 10 MG tablet
10 mg PO DAILY
fluticasone propionate 50 mcg/actuation [place],Suspension
2 spray INTRANASAL DAILY
Discontinued
nitrofurantoin 100 mg Capsule
100 mg PO Q12H
Discharge Orders:
Discharge Patient (As Directed); Ordered 10/14/24
Ordered By: Bogdan Claudio
Discharge Date and Time
Print Language: IRISH
--- NOTE | 2024-10-14 10:53 | CM ---
CM reviewed chart, patient seen bedside, for discharge today. Patient resides with her and 23 year old daughter in a two story home, two steps to enter. Bedroom on second floor. Patient denies use of DME, reports VN in past after knee
surgery, denies SNF, history of outpatient PT at [facility]. Patient confirms PCP Connor Faust, [facility], confirms prescription coverage. Patient denies needs upon discharge, reports will be able to transport home around
3:00 p.m. CM will continue to follow for all discharge planning needs.
Plan; home with , no needs.
[2024-10-14 15:25] VITALS: BP 133/66
[2024-10-17 00:08] LABS: Stone Analysis Mass 16 mg
== END 2024-10-14 18:17 | disposition home or self-care (01) | DRG 661 ==
LOC: 4 WEST ACU 06:24
PROVIDERS: ADMITTING PHYSICIAN Student in an Organized Health Care Education/Training Program; ATTENDING PHYSICIAN Hospitalist; CONSULT PHYSICIAN Specialist; EMERGENCY PHYSICIAN Emergency Medicine; FAMILY PHYSICIAN Internal Medicine
PROC: 0TC68ZZ Extirpation of Matter from Right Ureter, Via Natural or Artificial Opening Endoscopic (ICD-10-PCS; 2024-10-13)
PROC: 0T768DZ Dilation of Right Ureter with Intraluminal Device, Via Natural or Artificial Opening Endoscopic (ICD-10-PCS; 2024-10-13)
DX: N20.2 Calculus of kidney with calculus of ureter (principal); I10 Essential (primary) hypertension; Z87.891 Personal history of nicotine dependence
CPT/HCPCS: 74018; 74176; 76000; 80048; 80053; 81003; 81015; 82365; 83735; 85025; 87040; 93005; 96374; 96375; 96376; 99285; C2617

== ENCOUNTER → 2024-11-19 17:11 | Outpatient (REF) | payer BC, SELFPAY ==
[2024-11-19 18:03] LABS: C-Reactive Protein 13.40 mg/L (0.0-10.00)
== END ==
LOC: REG 17:11
PROVIDERS: ATTENDING PHYSICIAN Student in an Organized Health Care Education/Training Program; FAMILY PHYSICIAN Internal Medicine
DX: R19.5 Other fecal abnormalities (principal)
CPT/HCPCS: 36415; 85652; 86140

== ENCOUNTER → 2024-11-26 11:06 | Outpatient (REF) | payer BC, SELFPAY ==
[2024-11-26 12:06] LABS: Calcium 9.9 mg/dl (8.4-10.2); Uric Acid 5.6 mg/dl (2.5-6.2)
== END ==
LOC: REG 11:06
PROVIDERS: ATTENDING PHYSICIAN Student in an Organized Health Care Education/Training Program; FAMILY PHYSICIAN Internal Medicine; OTHER PHYSICIAN Specialist
DX: R19.5 Other fecal abnormalities (principal); N20.0 Calculus of kidney; N20.1 Calculus of ureter
CPT/HCPCS: 36415; 82653; 83970; 83993; 84550

== ENCOUNTER 2025-01-31 06:37 | Day surgery (SDC) | payer BC, SELFPAY | END 2025-01-31 11:07 | disposition home or self-care (01) | LOC: GI 06:37 | PROVIDERS: ATTENDING PHYSICIAN Student in an Organized Health Care Education/Training Program | DX: K63.89 Other specified diseases of intestine (principal); K31.7 Polyp of stomach and duodenum; K31.89 Other diseases of stomach and duodenum; D12.2 Benign neoplasm of ascending colon; D17.5 Benign lipomatous neoplasm of intra-abdominal organs | CPT/HCPCS: 45385; 45380; 43239; 88305; 88341; 88342 ==